=== PATIENT | female | born 1990 | race Caucasian/White ===

== ENCOUNTER 2018-06-18 22:06 | Emergency (ER) | payer OTHER ==
[2018-06-19] MEDS ORDERED: FLUCONAZOLE 100 MG TABLET PO ONE (01:48)
--- NOTE | 2018-06-19 01:49 | ER Document Report ---
ED GI/ - General Chief Complaint: Vaginal Itching Stated Complaint: POSSIBLE INFECTION Time Seen by Provider: 06/19/18 00:27 Notes: Patient is a 28-year-old female who began having vaginal itching yesterday. Patient states that she soaked in water with apple cider vinegar as a home remedy for yeast infection and that made things worse. Denies any burning with urination. States that she is not concerned about an STD but more about yeast infection due to itching. Applied Vagisil which was somewhat helpful. States that she worked in the hot environment with [employer] on today and that made things worse. No dysuria. Does not think she is . TRAVEL OUTSIDE OF THE [place] IN LAST 30 DAYS: No - HPI Patient complains to provider of: Vaginal discharge Onset: Yesterday Timing/Duration: Gradual Severity at maximum: Moderate Severity in ED: Moderate Sexual history: Active Associated symptoms: None Exacerbated by: Movement Relieved by: Remaining still Similar symptoms previously: Yes Recently seen / treated by doctor: No - Related Data Allergies/Adverse Reactions: No Known Allergies Allergy (Unverified 01/28/16 13:13) Past Medical History - General Information source: Patient - Social History Smoking Status: Current Some Day Smoker Family History: Reviewed & Not Pertinent Renal/ Medical History: Reports: Hx Ovarian Cysts Past Surgical History: Reports: Hx Cardiac Surgery - PDA at 3 years old - Immunizations Hx Diphtheria, Pertussis, Tetanus Vaccination: Yes Hx Pneumococcal Vaccination: 08/05/14 Review of Systems - Review of Systems Constitutional: No symptoms reported EENT: No symptoms reported Cardiovascular: No symptoms reported Respiratory: No symptoms reported Gastrointestinal: No symptoms reported Genitourinary: No symptoms reported Female Genitourinary: See HPI Musculoskeletal: No symptoms reported Skin: No symptoms reported Hematologic/Lymphatic: No symptoms reported Neurological/Psychological: No symptoms reported Physical Exam - Vital signs Vitals: Temp Pulse Resp BP Pulse Ox 98.5 F 71 14 121/83 99 06/18/18 22:38 06/18/18 22:38 06/18/18 22:38 06/18/18 22:38 06/18/18 22:38 Interpretation: Normal - General General appearance: Appears well, Alert - HEENT Head: Normocephalic, Atraumatic Eyes: Normal Pupils: PERRL - Respiratory Respiratory status: No respiratory distress Chest status: Nontender Breath sounds: Normal Chest palpation: Normal - Cardiovascular Rhythm: Regular Heart sounds: Normal auscultation Murmur: No - Abdominal Inspection: Normal Distension: No distension Bowel sounds: Normal Tenderness: Nontender Organomegaly: No organomegaly - Genitourinary External exam: Other - Ulcerations of the labia minora internally Speculum exam: Vaginal discharge Vaginal bleeding: None Bimanuel exam: Other - Unable to perform due to pain of external genitalia - Back Back: Normal, Nontender - Extremities General upper extremity: Normal inspection, Nontender, Normal color, Normal ROM , Normal temperature General lower extremity: Normal inspection, Nontender, Normal color, Normal ROM , Normal temperature, Normal weight bearing. No: Rebecca's sign - Neurological Neuro grossly intact: Yes Cognition: Normal Orientation: AAOx4 Augustin Coma Scale Eye Opening: Spontaneous Sellers Coma Scale Verbal: Oriented Sellers Coma Scale Motor: Obeys Commands Augustin Coma Scale Total: 15 Speech: Normal Motor strength normal: LUE, RUE, LLE, RLE Sensory: Normal - Psychological Associated symptoms: Normal affect, Normal mood - Skin Skin Temperature: Warm Skin Moisture: Dry Skin Color: Normal Course - Re-evaluation Re-evalutation: 06/19/18 03:10 Patient symptoms are most consistent with yeast. Patient will be given a dose of fluconazole. Gonorrhea chlamydia and wet prep have been sent. Patient will be called with results. Stable for discharge. Of note, she is not on urinalysis. Patient is agreeable to this plan. Return if worsening or concerning symptoms. - Vital Signs Vital signs: Temp Pulse Resp BP Pulse Ox 98.3 F 75 16 126/76 H 99 06/19/18 02:00 06/19/18 02:00 06/19/18 02:00 06/19/18 02:00 06/19/18 02:00 - Laboratory Laboratory results interpreted by me: 06/19/18 01:45 Urine Protein 30 H Ur Leukocyte Esterase LARGE H Discharge - Discharge Clinical Impression: Yeast infection of the vagina Condition: Stable Disposition: HOME, SELF-CARE Instructions: Vaginal Yeast Infection ([facility]) Prescriptions: Fluconazole [Diflucan] 150 mg PO ONCE PRN #2 tablet PRN Reason: Metronidazole [Flagyl 500 mg Tablet] 500 mg PO Q12 #14 tablet Forms: Return to Work
[2018-06-19 01:52] LABS: BACTERIA (WET MOUNT) 4+ BACTERIA SEEN; RBCS (WET MOUNT) 1+ RBCS SEEN; T.VAGINALIS (WET MOUNT) NO TRICHOMONAS SEEN; WBCS (WET MOUNT) 4+ WBCS SEEN; YEAST (WET MOUNT) NO YEAST SEEN
[2018-06-19 02:12] VITALS: BP 126/76
[2018-06-19 02:22] LABS: APPEARANCE,URINE SLIGHTLY-CLOUDY; BILIRUBIN,URINE NEGATIVE (NEGATIVE); COLOR,URINE YELLOW; GLUCOSE, URINE NEGATIVE (NEGATIVE); KETONES,URINE NEGATIVE (NEGATIVE); LEUKOCYTE ESTERASE,URINE LARGE (NEGATIVE); NITRITE,URINE NEGATIVE (NEGATIVE); PROTEIN,URINE 30 mg/dL (NEGATIVE); URINE SPECIFIC GRAVITY 1.023; UROBILINOGEN,URINE NEGATIVE mg/dL (<2.0)
[2018-06-19 03:27] LABS: CHLAM PCR NOT DETECTED (NOT DETECT); GON PCR NOT DETECTED (NOT DETECT)
== END 2018-06-19 02:00 | disposition home or self-care (01) ==
LOC: ER 22:06
DX: B37.3 Candidiasis of vulva and vagina (principal); F17.200 Nicotine dependence, unspecified, uncomplicated
CPT/HCPCS: 81001; 81025; 87210; 87491; 87591; 99283

== ENCOUNTER 2018-07-12 17:28 | Emergency (ER) | payer OTHER ==
--- NOTE | 2018-07-12 19:25 | ER Document Report ---
ED Medical Screen (RME) - General Chief Complaint: Abdominal Pain Stated Complaint: ABDOMINAL PAIN Time Seen by Provider: 07/12/18 19:14 Mode of Arrival: Ambulatory Information source: Patient, [facility] Records Notes: 28-year-old female presents with complaint of abdominal pain. She states abdominal pain started 2 weeks prior to arrival. Pain is located in the epigastric and right upper quadrant and described as a aching constant pain that is worse with eating. Patient has had associated nausea but no vomiting, she reports a decrease in appetite and a 10 pound weight loss over the last 2 weeks due to not eating.. She denies diarrhea, fever, chills, alcohol use. I have greeted and performed a rapid initial assessment of this patient. A comprehensive ED assessment and evaluation of the patient, analysis of test results and completion of medical decision making process we will be contacted by additional ED providers. PHYSICAL EXAMINATION: GENERAL: Well-appearing, well-nourished and in no acute distress. HEAD: Atraumatic, normocephalic. EYES: Pupils equal round extraocular movements intact, conjunctiva are normal. Abd: Exam limited but has tenderness to palpation in the epigastric and right upper quadrant. LUNGS: No respiratory distress Musculoskeletal: Normal range of motion NEUROLOGICAL: Normal speech, normal gait. SKIN: Warm, Dry, normal turgor, no rashes or lesions noted. TRAVEL OUTSIDE OF THE [place] IN LAST 30 DAYS: No - HPI Onset: Other Onset/Duration: Persistent, Worse Quality of pain: Achy Associated Symptoms: Nausea Exacerbated by: Food Relieved by: Denies Similar symptoms previously: No Recently seen / treated by doctor: No - Related Data Smoking: Cigarettes Frequency of alcohol use: None Drug Abuse: None Allergies/Adverse Reactions: No Known Allergies Allergy (Unverified 01/28/16 13:13) Past Medical History Renal/ Medical History: Reports: Hx Ovarian Cysts. Denies: Hx Peritoneal Dialysis Past Surgical History: Reports: Hx Cardiac Surgery - PDA at 3 years old - Immunizations Hx Diphtheria, Pertussis, Tetanus Vaccination: Yes Physical Exam - Vital signs Vitals: Temp Pulse BP Pulse Ox 98.1 F 88 133/84 H 100 07/12/18 17:48 07/12/18 17:48 07/12/18 17:48 07/12/18 17:48 Course - Vital Signs Vital signs: Temp Pulse Resp BP Pulse Ox 98.1 F 88 133/84 H 100 07/12/18 17:48 07/12/18 17:48 07/12/18 17:48 07/12/18 17:48
[2018-07-12 20:09] LABS: ABSOLUTE EOSINOPHILS # (AUTO) 0.1 10^3/uL (0.0-0.6); ABSOLUTE LYMPHOCYTES (AUTO) 2.7 10^3/uL (0.5-4.7); ABSOLUTE MONOCYTES (AUTO) 0.5 10^3/uL (0.1-1.4); ABSOLUTE NEUT (AUTO) 4.8 10^3/uL (1.7-8.2); BASOPHILS % (AUTO) 0.5 % (0-2); EOSINOPHILS % (AUTO) 1.2 % (0-6); HEMATOCRIT 43.1 % (36.0-47.0); HEMOGLOBIN 14.3 g/dL (12.0-15.5); LYMPHOCYTES % (AUTO) 33.2 % (13-45); MEAN CORPUSCULAR HEMOGLOBIN 30.2 pg (27.0-33.4); MEAN CORPUSCULAR HGB CONC 33.3 g/dL (32.0-36.0); MEAN CORPUSCULAR VOLUME 91 fl (80-97); MONOCYTES % (AUTO) 6.2 % (3-13); PLATELET COUNT 234 10^3/uL (150-450); RED BLOOD COUNT 4.75 10^6/uL (3.72-5.28); RED CELL DISTRIBUTION WIDTH 12.6 % (11.5-14.0); SEGMENTED NEUTROPHILS % (AUTO) 58.9 % (42-78); TOTAL CELLS COUNTED % (AUTO) 100 %; WHITE BLOOD COUNT 8.1 10^3/uL (4.0-10.5)
[2018-07-12 20:11] LABS: APPEARANCE,URINE SLIGHTLY-CLOUDY; BILIRUBIN,URINE NEGATIVE (NEGATIVE); COLOR,URINE YELLOW; GLUCOSE, URINE NEGATIVE (NEGATIVE); KETONES,URINE TRACE mg/dL (NEGATIVE); LEUKOCYTE ESTERASE,URINE NEGATIVE (NEGATIVE); NITRITE,URINE NEGATIVE (NEGATIVE); PROTEIN,URINE 30 mg/dL (NEGATIVE); URINE SPECIFIC GRAVITY 1.013; UROBILINOGEN,URINE NEGATIVE mg/dL (<2.0)
[2018-07-12 20:26] LABS: ALANINE AMINOTRANSFERASE 44 U/L (9-52); ALBUMIN 4.2 g/dL (3.5-5.0); ALKALINE PHOSPHATASE 55 U/L (38-126); ANION GAP 10 (5-19); ASPARTATE AMINO TRANSFERASE 23 U/L (14-36); BILIRUBIN,DIRECT 0.3 mg/dL (0.0-0.4); BILIRUBIN,TOTAL 0.7 mg/dL (0.2-1.3); BLOOD UREA NITROGEN 4 mg/dL (7-20); CALCIUM 9.5 mg/dL (8.4-10.2); CARBON DIOXIDE 23 mmol/L (22-30); CHLORIDE 106 mmol/L (98-107); GLUCOSE 89 mg/dL (75-110); LIPASE 107.8 U/L (23-300); SODIUM 138.6 mmol/L (137-145); TOTAL PROTEIN 7.1 g/dL (6.3-8.2)
--- NOTE | 2018-07-12 20:28 | RADIOLOGY REPORT (SQ) ---
EXAM DESCRIPTION: U/S ABDOMEN LIMITED W/O DOP COMPLETED DATE/TIME: 07/12/2018 8:19 pm REASON FOR STUDY: ruq pain COMPARISON: None. TECHNIQUE: Dynamic and static grayscale images acquired of the abdomen and recorded on PACS. Additio nal selected color Doppler and spectral images recorded. LIMITATIONS: None. FINDINGS: PANCREAS: No masses. Visualized pancreatic duct normal caliber. LIVER: No masses. Echotexture normal. LIVER VASCULATURE: Normal directional flow of the main portal vein and hepatic veins. GALLBLADDER: No stones. Normal wall thickness. No pericholecystic fluid. ULTRASOUND-DETECTED SCHULZ'S SIGN: Negative. INTRAHEPATIC DUCTS AND COMMON DUCT: CBD and intrahepatic ducts normal caliber. No filling defects. INFERIOR VENA CAVA: Not imaged. AORTA: No aneurysm. RIGHT KIDNEY: Normal size, 10 cm. Normal echogenicity. No solid or suspicious masses. No hydronephro sis. No calcifications. PERITONEAL AND RIGHT PLEURAL SPACE: No ascites or effusions. OTHER: No other significant findings. IMPRESSION: NORMAL RIGHT UPPER QUADRANT ULTRASOUND. TECHNICAL DOCUMENTATION: JOB ID: [id number] [employer]- All Rights Reserved Reading location - IP/workstation name: [email or web address]
[2018-07-12] MEDS ORDERED: LIDOCAINE 2% VISCOUS SOLN 20 ML UDCUP PO ONE (23:50)
[2018-07-12] MEDS ORDERED: MAG HYDROX/AL HYDROX/SIMETH SUSP 30 ML UDCUP PO ONE (23:50)
--- NOTE | 2018-07-12 23:50 | ER Document Report ---
ED GI/ - General Mode of Arrival: Ambulatory Information source: Patient TRAVEL OUTSIDE OF THE [place] IN LAST 30 DAYS: No <COLE TOWNSEND - Last Filed: 07/12/18 23:51> <MIGUEL ANGEL ARTHUR - Last Filed: 07/13/18 01:00> - General Chief Complaint: Abdominal Pain Stated Complaint: ABDOMINAL PAIN Time Seen by Provider: 07/12/18 19:14 Notes: 28-year-old female who presents to the emergency department today with complaints of abdominal pain. Patient states she has had consistent abdominal pain for the last 2 weeks and she has not been eating because of the pain. Patient states she has lost 10 pounds over the last two weeks because of not eating. Patient states prior to 2 weeks ago when she ate heavy or spicy foods her abdominal pain became worse. Patient states she has had nausea but she denies any vomiting or diarrhea. (COLE TOWNSEND) - Related Data Allergies/Adverse Reactions: No Known Allergies Allergy (Unverified 01/28/16 13:13) Past Medical History - General Information source: Patient, [facility] Records - Social History Smoking Status: Current Every Day Smoker Cigarette use (# per day): Yes Chew tobacco use (# tins/day): No Frequency of alcohol use: None Drug Abuse: None Lives with: Family Family History: Reviewed & Not Pertinent Patient has suicidal ideation: No Patient has homicidal ideation: No - Past Medical History Cardiac Medical History: Reports: Hx Hypertension Renal/ Medical History: Reports: Hx Ovarian Cysts Psychiatric Medical History: Reports: Hx Attention Deficit Hyperactivity Disorder, Hx Depression Past Surgical History: Reports: Hx Cardiac Surgery - PDA at 3 years old - Immunizations Hx Diphtheria, Pertussis, Tetanus Vaccination: Yes Hx Pneumococcal Vaccination: 08/05/14 <COLE TOWNSEND - Last Filed: 07/12/18 23:51> Review of Systems - Review of Systems Constitutional: No symptoms reported EENT: No symptoms reported Cardiovascular: No symptoms reported Respiratory: No symptoms reported Gastrointestinal: See HPI, Abdominal pain, Nausea. denies: Diarrhea, Vomiting Genitourinary: No symptoms reported Female Genitourinary: No symptoms reported Musculoskeletal: No symptoms reported Skin: No symptoms reported Hematologic/Lymphatic: No symptoms reported Neurological/Psychological: No symptoms reported -: Yes All other systems reviewed and negative <COLE TOWNSEND - Last Filed: 07/12/18 23:51> Physical Exam <COLE TOWNSEND - Last Filed: 07/12/18 23:51> <MIGUEL ANGEL ARTHUR - Last Filed: 07/13/18 01:00> - Vital signs Vitals: Temp Pulse BP Pulse Ox 98.1 F 88 133/84 H 100 07/12/18 17:48 07/12/18 17:48 07/12/18 17:48 07/12/18 17:48 - Notes Notes: Physical Exam: General: Alert, appears well. HEENT: Normocephalic. Atraumatic. PERRL. Extraocular movements intact. Oropharynx clear. Neck: Supple. Non-tender. Respiratory: No respiratory distress. Clear and equal breath sounds bilaterally. Cardiovascular: Regular rate and rhythm. Abdominal: Epigastric, right upper quadrant, and left lower quadrant tenderness with palpation. No distension. Normal Bowel Sounds. Back: Non-tender. No deformity or step off. Extremities: Moves all four extremities. Upper extremities: Normal inspection. Normal ROM. Lower extremities: Normal inspection. No edema. Normal ROM. Neurological: Normal cognition. AAOx4. Normal speech. Psychological: Normal affect. Normal Mood. Skin: Warm. Dry. Normal color. (COLE TOWNSEND) Course - Laboratory Result Diagrams: 07/12/18 19:44 07/12/18 19:44 <COLE TOWNSEND - Last Filed: 07/12/18 23:51> - Laboratory Result Diagrams: 07/12/18 19:44 07/12/18 19:44 <MIGUEL ANGEL ARTHUR - Last Filed: 07/13/18 01:00> - Re-evaluation Re-evalutation: 07/13/18 00:56 Patient reports considerable improvement in her epigastric discomfort following GI cocktail. On reexamination she is not tender to palpate that area. She states she does feel little discomfort deeper inside now but is much more comfortable. (MIGUEL ANGEL ARTHUR) - Vital Signs Vital signs: Temp Pulse Resp BP Pulse Ox 98.1 F 88 133/84 H 100 07/12/18 17:48 07/12/18 17:48 07/12/18 17:48 07/12/18 17:48 - Laboratory Laboratory results interpreted by me: 07/12/18 07/12/18 19:44 19:44 BUN 4 L Urine Protein 30 H Urine Ketones TRACE H Discharge <COLE TOWNSEND - Last Filed: 07/12/18 23:51> <SANDHYAASUNCIONMIGUEL ANGEL - Last Filed: 07/13/18 01:00> - Discharge Clinical Impression: GERD (gastroesophageal reflux disease) Qualifiers: Esophagitis presence: esophagitis presence not specified Qualified Code(s): K21.9 - Gastro-esophageal reflux disease without esophagitis Condition: Stable Disposition: HOME, SELF-CARE Additional Instructions: Gastritis: Inflammation of the stomach lining is called gastritis. This commonly causes upper abdominal pain, nausea, and vomiting. In severe cases, bleeding of the stomach lining can occur. Gastritis can be caused by bacteria or viruses , alcohol, or stomach-irritating drugs. Begin with sips of clear liquids. Take increasing amounts of fluid over the first 24 hours. Then start small amounts of bland foods (such as dry toast , applesauce, mashed potato). Gradually resume your usual diet. You should take antacids every two hours until the pain has subsided. Acid -suppressing drugs may be prescribed as well. Avoid aspirin, caffeine, tobacco , and alcohol. If the abdominal pain worsens, or there is evidence of major bleeding in the stomach (such as black, tarry stool, bloody or black vomit, or lightheadedness), you should return immediately. Call the doctor if you aren't improved in 24 to 36 hours. Reflux Disease (GERD): Gastro-Esophageal Reflux Disease (GERD) is caused by stomach acid refluxing back up into the esophagus. The valve at the end of the esophagus may be weak. This is common in persons with a hiatal hernia. GERD symptoms can include indigestion, chest pain, heartburn, or food "sticking." Certain foods, alcohol, and aspirin can make GERD worse. Treatment depends on the severity. Usually, antacids or acid-suppressing medicines are used. When the esophagus is acutely inflamed, the physician will often prescribe membrane-protective drugs such as Carafate. Some patients benefit from medication such as Reglan that tightens the valve at the top of the stomach. Avoid those foods that bring on your symptoms. For many people, these foods are coffee, chocolate, onions, garlic, and carbonated drinks. Don't use alcohol, aspirin, caffeine, or tobacco. Don't eat late at night -- within 4 hours of bedtime. Don't over-eat. If necessary, elevate the head of your bed about 4 inches so that stomach acid will not roll up into your esophagus. Call the doctor if you develop severe chest pain, inability to swallow fluids, fever, or worsening symptoms. Take the generic form of Prilosec OTC(omeprazole) once daily. Eat a bland diet. Avoid spicy foods, citric acid type fruits and drinks, alcohol, carbonated beverages, sausage, matute, pizza, chocolate, peanut butter. Take antacids between meals and at bedtime. Follow-up with a local medical doctor if not improving. RETURN TO THE EMERGENCY ROOM IF ANY NEW OR WORSENING SYMPTOMS. Scribe Attestation: 07/13/18 00:59 I personally performed the services described in the documentation, reviewed and edited the documentation which was dictated to the scribe in my presence, and it accurately records my words and actions. (MIGUEL ANGEL ARTHUR) Scribe Documentation - Scribe Written by Beti:: Beti Mendenhall, 07/13/2018 0017 acting as scribe for :: Sandhya <COLE TOWNSEND - Last Filed: 07/12/18 23:51>
[2018-07-13 01:24] VITALS: BP 130/94
== END 2018-07-13 01:24 | disposition home or self-care (01) ==
LOC: ER 17:28
DX: K21.9 Gastro-esophageal reflux disease without esophagitis (principal); R11.0 Nausea; R10.11 Right upper quadrant pain; R10.816 Epigastric abdominal tenderness; R10.811 Right upper quadrant abdominal tenderness; R10.814 Left lower quadrant abdominal tenderness; F17.210 Nicotine dependence, cigarettes, uncomplicated; I10 Essential (primary) hypertension; Z87.42 Personal history of other diseases of the female genital tract
CPT/HCPCS: 99284; 36415; 83690; 85025; 81025; 80053; 81001; 76705; J3490

== ENCOUNTER 2018-09-09 09:29 | Day surgery (SDC) | payer OTHER ==
[~2018-09-09 09:29] MED LIST: PROPOFOL INJ 200 MG/20 ML VIAL IV ONE
[2018-09-09 11:42] VITALS: BP 110/63
--- NOTE | 2018-09-09 12:57 | Operative Report ---
Operative Report DATE OF SURGERY: 09/09/18 Operative Report: The risks, benefits and alternatives of the procedure including the risk of bleeding, perforation requiring surgery are explained to the patient in detail and informed consent is obtained. The patient is placed in a left, lateral decubital position. Timeout was called. Propofol medication is administered. A rectal examination is done which did not reveal any masses, tears or fissures. An Olympus videoscope was introduced into the patient's rectum. The scope was then carefully advanced all the way to the cecum. The cecum was identified by the usual anatomical landmarks of the ileocecal valve as well as the appendiceal office. Photodocumentation is obtained. Prep was good. The scope was then sequentially pulled back via the various segments of the colon including the ascending colon, hepatic flexure, transverse colon, splenic flexure, descending colon and finally into the rectosigmoid portions of the colon. Retroflexion maneuvers performed. The risks benefits and alternatives of the procedure explained to the patient in detail and informed consent is obtained.A GIF Olympus video scope was inserted into the patient's mouth and hypopharynx, the esophagus is identified intubated and insufflated ,the scope was then advanced through the esophagus stomach and duodenum, retroflexion maneuver is done the esophagus stomach and first and second portions of the duodenum examined PREOPERATIVE DIAGNOSIS: Abdominal pain, epigastric in region. Possible melena. Rectal bleeding POSTOPERATIVE DIAGNOSIS: Mild terminal ileum inflammation status post biopsy rule out Crohn's disease. Internal hemorrhoids. Gastritis status post biopsy rule out Helicobacter pylori. Hiatal hernia. No evidence of upper or lower GI bleeding noted OPERATION: Colonoscopy with biopsy. EGD with biopsy SURGEON: DOROTHY LENZ ANESTHESIA: LMAC TISSUE REMOVED OR ALTERED: As noted above. COMPLICATIONS: None. ESTIMATED BLOOD LOSS: None. INTRAOPERATIVE FINDINGS: As noted above. PROCEDURE: Patient tolerated the procedure well. No immediate postprocedure complications are noted. Patient discharged in good condition. Discharge date 09/09/2018. Discharge diet: Regular. Discharge activity: Regular. 2-3-week follow-up to discuss findings. Patient is instructed to call the office or proceed to the emergency room should there be any further proximal questions. Wait on the pathology.
== END 2018-09-09 11:40 | disposition home or self-care (01) ==
LOC: END 09:29
PROVIDERS: ATTEND Internal Medicine Gastroenterology
DX: K52.9 Noninfective gastroenteritis and colitis, unspecified (principal); K64.8 Other hemorrhoids; K29.50 Unspecified chronic gastritis without bleeding; K92.1 Melena; K44.9 Diaphragmatic hernia without obstruction or gangrene; Z79.899 Other long term (current) drug therapy; Z87.891 Personal history of nicotine dependence
CPT/HCPCS: 43239; 45380; 81025; 88305 ×2; J2704; 813

== ENCOUNTER → 2019-01-09 | Outpatient (CLI) | payer OTHER | LOC: OD 13:25 | PROVIDERS: ATTEND Otolaryngology | DX: J30.9 Allergic rhinitis, unspecified (principal) | CPT/HCPCS: 36415; 82785; 86003 ==

== ENCOUNTER → 2019-01-31 | Outpatient (CLI) | payer OTHER | LOC: OD 14:43 | PROVIDERS: ATTEND Nurse Practitioner Family | DX: N91.2 Amenorrhea, unspecified (principal) | CPT/HCPCS: 36415; 84702 ==

== ENCOUNTER → 2019-06-27 | Outpatient (CLI) | payer OTHER ==
[2019-06-27 12:25] LABS: HEMATOCRIT 41.4 % (36.0-47.0); MEAN CORPUSCULAR HEMOGLOBIN 30.3 pg (27.0-33.4); MEAN CORPUSCULAR HGB CONC 33.7 g/dL (32.0-36.0); MEAN CORPUSCULAR VOLUME 90 fl (80-97); PLATELET COUNT 208 10^3/uL (150-450); RED BLOOD COUNT 4.61 10^6/uL (3.72-5.28); RED CELL DISTRIBUTION WIDTH 12.6 % (11.5-14.0); WHITE BLOOD COUNT 6.6 10^3/uL (4.0-10.5)
[2019-06-27 12:42] LABS: ALBUMIN 4.3 g/dL (3.5-5.0); ALKALINE PHOSPHATASE 64 U/L (38-126); ANION GAP 7 (5-19); ASPARTATE AMINO TRANSFERASE 28 U/L (14-36); BILIRUBIN,DIRECT 0.2 mg/dL (0.0-0.4); BILIRUBIN,TOTAL 0.7 mg/dL (0.2-1.3); BLOOD UREA NITROGEN 12 mg/dL (7-20); CALCIUM 9.6 mg/dL (8.4-10.2); CARBON DIOXIDE 27 mmol/L (22-30); CHLORIDE 105 mmol/L (98-107); CHOLESTEROL 178.53 mg/dL (0-200); GLUCOSE 79 mg/dL (75-110); POTASSIUM 4.3 mmol/L (3.6-5.0); TOTAL PROTEIN 6.7 g/dL (6.3-8.2); TRIGLYCERIDES 175 mg/dL (<150)
[2019-06-27 12:53] LABS: DIRECT LDL 116 mg/dL (<100)
== END ==
LOC: OD 11:07
PROVIDERS: ATTEND Physician Assistant
DX: R07.9 Chest pain, unspecified (principal); R00.2 Palpitations; E78.5 Hyperlipidemia, unspecified
CPT/HCPCS: 36415; 80048; 80061; 80076; 83735; 84443; 85027

== ENCOUNTER 2019-09-12 09:05 | Day surgery (SDC) | payer OTHER ==
[2019-09-12 10:15] VITALS: BP 118/69
--- NOTE | 2019-09-12 11:46 | Operative Report ---
Operative Report DATE OF SURGERY: 09/12/19 Operative Report: The risks benefits and alternatives of the procedure explained to the patient in detail and informed consent is obtained.A GIF Olympus video scope was inserted into the patient's mouth and hypopharynx, the esophagus is identified intubated and insufflated ,the scope was then advanced through the esophagus stomach and duodenum ,retroflexion maneuver is done, the esophagus stomach and first and second portions of the duodenum examined. PREOPERATIVE DIAGNOSIS: Epigastric pain rule out peptic ulcer disease POSTOPERATIVE DIAGNOSIS: Gastritis status post biopsy without Helicobacter pylori OPERATION: EGD with biopsy SURGEON: DOROTHY LENZ ANESTHESIA: LMAC TISSUE REMOVED OR ALTERED: As noted above. COMPLICATIONS: None. ESTIMATED BLOOD LOSS: None. INTRAOPERATIVE FINDINGS: As noted above. PROCEDURE: Patient tolerated the procedure well. No immediate postprocedure complications are noted. Patient is discharged in good condition. Discharge date 09/12/2019. Discharge diet: Regular. Discharge activity: Regular. 2 to 3-week follow-up to discuss findings. Patient is instructed to call the office or proceed to the emergency room should there be any further questions. Wait on the pathology.
== END 2019-09-12 10:15 | disposition home or self-care (01) ==
LOC: END 09:05
PROVIDERS: ATTEND Internal Medicine Gastroenterology
DX: K29.50 Unspecified chronic gastritis without bleeding (principal); E78.5 Hyperlipidemia, unspecified; F17.210 Nicotine dependence, cigarettes, uncomplicated
CPT/HCPCS: 43239; 88305 ×2; 00731; J2704; 731